=== PATIENT | female | born 1960 | race Caucasian/White ===

== ENCOUNTER 2018-09-07 10:58 | Emergency (ER) | payer MEDICAID ==
[~2018-09-07] VITALS: Ht 160 cm; Wt 83.4 kg
[2018-09-07 11:01] VITALS: BP 157/93
[2018-09-07] MEDS ORDERED: BUPIVAcaine/PF 2.5 mg/ml (0.25%) 30ml vial IJ ONE (12:55)
[2018-09-07] MEDS ORDERED: triamcinolone acetonide 40mg/ml inj IM ONE (12:55)
[2018-09-07] MEDS ORDERED: acetaminophen 325mg tablet PO ONE (13:00)
[2018-09-07] MEDS ORDERED: BUPIVAcaine/PF 2.5mg/ml (0.25%) 10ml vial IJ ONE (13:15)
== END 2018-09-07 14:20 | disposition home or self-care (01) ==
LOC: ER 10:59
DX: M25.552 Pain in left hip (principal); X58.XXXA Exposure to other specified factors, initial encounter; Y93.89 Activity, other specified; Y92.89 Other specified places as the place of occurrence of the external cause; Y99.8 Other external cause status
CPT/HCPCS: 20552; 99284; J3301; J3490